=== PATIENT | female | born 1970 | race Caucasian/White ===

== ENCOUNTER 2017-12-14 14:56 | Emergency (ER) | payer OTHER ==
[2017-12-14 15:08] VITALS: RESP 20; TEMP 97.1
[2017-12-14] MEDS ORDERED: SODIUM CHLORIDE 0.9% 1000ML 1,000 ML IV SCH (15:45)
[2017-12-14] MEDS ORDERED: INSULIN HUMAN REGULAR 100 U/ML SOL IV ONE (16:03)
[2017-12-14 16:05] LABS: BASOPHILS % (AUTO) 1 % (0-3); EOSINOPHILS % (AUTO) 0 % (0-9); HEMATOCRIT 44 % (35-47); HEMOGLOBIN 14.7 gm/dl (12.0-15.5); LYMPHOCYTES % (AUTO) 15.03 % (10-50); MEAN CORPUSCULAR HEMOGLOBIN 29.8 pg (27.0-32.0); MEAN CORPUSCULAR HGB CONC 33.4 gm/dl (32.0-36.0); MEAN CORPUSCULAR VOLUME 89 fL (81-99); MONOCYTES % (AUTO) 4.6 % (0-12); NEUTROPHILS % (AUTO) 79.4 % (37-80)
[2017-12-14] MEDS ORDERED: INSULIN HUMAN REGULAR 100 U/ML SOL ONE (16:06)
[2017-12-14 16:16] LABS: BLOOD UREA NITROGEN 18 mg/dl (7-18); CALCIUM 9.1 mg/dl (8.5-10.1); CARBON DIOXIDE 18.3 mEq/L (21-32); CHLORIDE 95 mMol/L (98-107); CREATININE 1.21 mg/dl (0.60-1.00); POTASSIUM 4.5 mMol/L (3.5-5.1); SODIUM 129 mMol/L (136-145)
[2017-12-14] MEDS ORDERED: ALUMINUM/MAGNESIUM 30 ML SUS PO ONE (16:18)
[2017-12-14 16:20] LABS: GLUCOSE 450 mg/dl (74-106)
[2017-12-14 16:27] LABS: APPEARANCE,URINE Clear; BILIRUBIN,URINE 3+ (NEGATIVE); COLOR,URINE Yellow; GLUCOSE, URINE (UA) 2+ (NEGATIVE); KETONES,URINE 3+ (NEGATIVE); LEUKOCYTE ESTERASE ,URINE NEGATIVE (NEGATIVE); NITRATE,URINE NEGATIVE (NEGATIVE); OCCULT BLOOD,URINE NEGATIVE (NEG-TRACE); PH,URINE 5.5; UROBILINOGEN,URINE 0.2 (0.2-1.0 EU)
[2017-12-14] MEDS ORDERED: ALUMINUM/MAGNESIUM 30 ML SUS ONE (16:27)
[2017-12-14 16:47] LABS: CRYSTALS NEGATIVE (0-3 AVE/HPF); EPITHELIAL CELLS 0-1 (SQUAMOUS); ICTOTEST,URINE NEGATIVE (NEGATIVE); RBC,URINE NEG (0-3AV/HPF); WBC,URINE NEG (0-5AV/HPF)
[2017-12-14 16:48] LABS: BACTERIA NEGATIVE (< 1+)
[2017-12-14 18:28] LABS: CARBON DIOXIDE 19.4 mEq/L (21-32); CREATININE 1.02 mg/dl (0.60-1.00); POTASSIUM 4.2 mMol/L (3.5-5.1)
[2017-12-14 18:47] VITALS: BP 114/78; PULSE 74; O2SAT 99
== END 2017-12-14 19:05 | disposition home or self-care (01) ==
LOC: ED 14:56
DX: E11.65 Type 2 diabetes mellitus with hyperglycemia (principal); K21.9 Gastro-esophageal reflux disease without esophagitis
CPT/HCPCS: 36415; 80048; 81001; 82009; 82962; 85025; 93005; 96365; 96374; 99283; 99285; J1815; A9270-GY